=== PATIENT | female | born 1960 | race Caucasian/White ===

== ENCOUNTER 2016-08-11 22:10 | Inpatient (IN) | payer OTHER ==
[~2016-08-11] VITALS: Ht 154.9 cm; Wt 80.8 kg
[2016-08-11 22:53] LABS: BASOPHIL % 0.2 % (0-2); PLATELET COUNT 270 x10^3mcL (130-400); RED CELL DISTRIBUTION WIDTH 13.1 % (11.5-14.5)
[2016-08-11 23:01] LABS: CALCIUM 9.1 mg/dL (8.5-10.1); CARBON DIOXIDE 21.3 mmol/L (21-32); CREATININE SERUM 1.2 mg/dL (0.6-1.0); POTASSIUM SERUM 3.6 mmol/L (3.5-5.1)
[2016-08-11 23:07] LABS: ALBUMIN 3.9 g/dL (3.4-5.0); BILIRUBIN TOTAL 0.43 mg/dL (0.20-1.00); TOTAL PROTEIN, SERUM 7.9 g/dL (6.4-8.2)
[2016-08-12 01:09] LABS: UA SPECIFIC GRAVITY <=1.005 (1.005-1.035); microscopic required? YES; urine erythrocyte TRACE (NEGATIVE)
[2016-08-12 03:12] VITALS: BP 93/55
[2016-08-12 04:18] LABS: CHOLESTEROL/HDL RATIO 3.9; PHOSPHOROUS 3.4 mg/dL (2.5-4.9); T3 TOTAL 0.76 ng/mL
[2016-08-12 04:27] LABS: FREE T4 1.64 ng/dL (0.76-1.46); FREE THYROXINE INDEX 3.5 ug/dL (1.4-4.5); T4(THYROXINE) 10.9 ug/dL (4.7-13.3)
[2016-08-12 04:45] LABS: AMPHETAMINE QUAL UR NONE DETECTED (NEG <=1000)
[2016-08-12 06:02] VITALS: BP 117/53
[2016-08-12 10:00] VITALS: BP 110/58
[2016-08-12 13:57] LABS: BASOPHIL % 0.1 % (0-2); PLATELET COUNT 225 x10^3mcL (130-400); RED CELL DISTRIBUTION WIDTH 13.1 % (11.5-14.5)
[2016-08-12 14:25] VITALS: BP 100/51
[2016-08-12 14:33] LABS: CHLORIDE SERUM 106 mmol/L (98-107); CREATININE SERUM 0.7 mg/dL (0.6-1.0); GFR1 > 60 mL/min; GLUCOSE SERUM 154 mg/dL (74-106); POTASSIUM SERUM 3.2 mmol/L (3.5-5.1); SODIUM SERUM 139 mmol/L (136-145)
[2016-08-12 18:24] VITALS: BP 101/56
[2016-08-12 21:54] VITALS: BP 102/55
[2016-08-13 05:50] VITALS: BP 103/54
[2016-08-13 05:56] LABS: BASOPHIL % 0.2 % (0-2); PLATELET COUNT 219 x10^3mcL (130-400)
[2016-08-13 06:28] LABS: CALCIUM 8.1 mg/dL (8.5-10.1); CARBON DIOXIDE 22.6 mmol/L (21-32); CHLORIDE SERUM 107 mmol/L (98-107); CREATININE SERUM 0.6 mg/dL (0.6-1.0); GFR1 > 60 mL/min; GLUCOSE SERUM 105 mg/dL (74-106); MAGNESIUM 1.8 mg/dL (1.8-2.4); PHOSPHOROUS 2.4 mg/dL (2.5-4.9); POTASSIUM SERUM 3.8 mmol/L (3.5-5.1); SODIUM SERUM 140 mmol/L (136-145)
[2016-08-13 14:20] VITALS: BP 91/64
[2016-08-13 18:08] VITALS: BP 100/66
[2016-08-13 20:28] VITALS: BP 115/68
[2016-08-14 05:47] VITALS: BP 102/59
[2016-08-14 05:54] LABS: BASOPHIL % 0.5 % (0-2); PLATELET COUNT 228 x10^3mcL (130-400); RED CELL DISTRIBUTION WIDTH 13.4 % (11.5-14.5)
[2016-08-14 06:00] LABS: CALCIUM 8.6 mg/dL (8.5-10.1); CHLORIDE SERUM 105 mmol/L (98-107); CREATININE SERUM 0.7 mg/dL (0.6-1.0); GFR1 > 60 mL/min; GLUCOSE SERUM 100 mg/dL (74-106); MAGNESIUM 1.8 mg/dL (1.8-2.4); PHOSPHOROUS 3.8 mg/dL (2.5-4.9); POTASSIUM SERUM 3.8 mmol/L (3.5-5.1); SODIUM SERUM 142 mmol/L (136-145)
[2016-08-14 09:45] VITALS: BP 102/59
[2016-08-14 10:41] VITALS: BP 109/70
[2016-08-14] MEDS ORDERED: NITROFURANTOIN100 MG PO ×3 (10:55→11:35)
[2016-08-14] MEDS ORDERED: LAC PO ×2 (11:30→11:35)
== END 2016-08-14 12:05 | disposition home or self-care (01) | DRG 720 ==
LOC: ED 22:10 → DU 08-12 01:56
PROVIDERS: Emergency Medicine; ADMIT Family Medicine
DX: A41.9 Sepsis, unspecified organism (principal); N17.0 Acute kidney failure with tubular necrosis; D68.69 Other thrombophilia; E11.65 Type 2 diabetes mellitus with hyperglycemia; E11.59 Type 2 diabetes mellitus with other circulatory complications; R55 Syncope and collapse; R65.20 Severe sepsis without septic shock; N39.0 Urinary tract infection, site not specified; E78.5 Hyperlipidemia, unspecified; D64.9 Anemia, unspecified; E66.9 Obesity, unspecified; Z68.33 Body mass index [BMI] 33.0-33.9, adult
CPT/HCPCS: 83880; 84439; J0696; J1956; J2405; J7030; J7040; Q0092